=== PATIENT | male | born 1995 | race Caucasian/White ===

== ENCOUNTER 2018-11-29 19:56 | Emergency (ER) | payer OTHER, SELFPAY ==
[2018-11-29 19:59] VITALS: BP 124/65; PULSE 60; RESP 12; TEMP 36.8; O2SAT 99
--- NOTE | 2018-11-29 20:26 | ED.EYEPROB ---
HPI - Eye Problem General Chief complaint: Eye Problems Stated complaint: RT EYE IS RED, PAINFUL Time Seen by Provider: 11/29/18 20:26 Source: patient Mode of arrival: ambulatory Limitations: no limitations History of Present Illness HPI Narrative: 23-year-old male comes in with complaint of right eye redness. Patient states that he has had symptoms. He 1st noticed it after he went to the gym and lifted some weights. It is only the right eye. He states he has had tearing but no obvious crusting or purulent discharge. Patient states might seem a little irritated but isn't painful. Patient states that he has not had similar symptoms in the past, he denies any contacts or wearing glasses. Patient is not appreciate any swelling of his eyelids or the face. Patient any decrease in his vision. He denies any pain within the eye itself. Patient denies any other past medical history is, no prior surgeries. No allergies to medications. He is not aware of any foreign bodies. He has not been involved in any activity such as welding, working with, or other similar activities that could cause his symptoms. Review of Systems Review of Systems ROS Unobtainable: All systems reviewed & are unremarkable except as noted in HPI and below Constitutional Denies chills and Denies fever(s) Eyes Denies blurry vision, Denies change in vision, Denies diplopia, Denies eye discharge, Reports irritation, Denies loss of vision, Denies other visual disturbances, Denies eye pain, Denies requires corrective lenses, Denies seeing flashes, Denies photophobia and Denies spots in vision ENT Ears, Nose, Mouth, and Throat: Reports as per HPI Gastrointestinal Gastrointestinal: Denies nausea and Denies vomiting Neurologic Denies loss of vision [facility] Social History Smoking Status: Never smoker Social History Smoking Status: Never smoker Exam Narrative Exam Narrative: GEN: well nourished, well appearing male, alert and oriented x 3, patient appears to be in no acute distress. HEENT: Atraumatic, pupils are equal round reactive to light, extraocular movements are intact, nares are clear, TMs are clear with no fluid, there is no conjunctival pallor. Throat is clear without any exudates, erythema, tonsillar enlargement or uvular deviation Visual acuity: right [20/20], left [20/20] without correction. General: no globe trauma Eyelids: normal inspection, eyelids everted for exam on right, no foreign body noted Conjunctiva/Sclera: normal inspection on left, on right sclera is injected. Corneas: normal inspection on left, examined with fluroscein on right, . On the right patient has a linear abrasion with uptake the upper eye about a 0.5 cm above the iris that is horizontal. EOM: intact, no palsy/entrapment Pupils: PERRL, normal accomadation, pupil normal Anterior Chambers: normal inspection, no hypema Posterior: normal fundoscopic bilaterally HEART: Regular rate and rhythm without murmur, clicks, rubs. LUNGS:Lungs clear to auscultation, no wheezes, rales, crackles, chest moves symmetrically ABD:bowel sounds normal, soft, non-tender, no guarding, rebound, rigidity, no masses noted, no hepatosplenomegaly MSCL: Non-tender, no muscle atrophy, muscles strength 5/5 upper and lower extremities, full range of motion, normal gait NEURO:CN 2-12 intact, sensation normal Initial Vital Signs Initial Vital Signs: Vital Signs Temperature 98.3 F 11/29/18 19:59 Pulse Rate 60 11/29/18 19:59 Respiratory Rate 12 11/29/18 19:59 Blood Pressure 124/65 11/29/18 19:59 Pulse Oximetry 99 11/29/18 19:59 Course Orders Ordered: Discontinued Medications Ofloxacin (Ocuflox) 1 bottle MISC SEEINSTR ONE Stop: 11/29/18 20:48 Vital Signs - 8 hr 11/29/18 19:59 Temperature 98.3 F Pulse Rate 60 Respiratory Rate 12 Blood Pressure 124/65 Pulse Oximetry 99 MDM - Eye Problem MDM Narrative Medical decision making narrative: Patient has abrasion although no clear cause. Patient was put on ofloxacin ophthalmic drops given a prepack. And referral to ophtho for recheck tomorrow. Discussed signs symptoms read returned the patient. He is comfortable with the plan. Discharge Plan Departure Patient Disposition: Home Clinical Impression: Corneal abrasion Instructions: DI for Corneal Abrasion Activity Restrictions/Additional Instructions: Called from morning for follow-up with Ophthalmology in the next 24 hours. Call the referral number below. Use antibiotic eye drops to the affected eye 4 times daily. You may take Tylenol and/or ibuprofen as needed for pain. You may use cool compresses as needed to the affected eye. Return to the emergency department for sudden severe eye pain, rapidly worsening symptoms, increasing swelling of the eye or face, pain in the eye itself, vision loss or decreased vision or other new or concerning symptoms. Referrals: Nicolas Sweet MD [Physician] -
[2018-11-29] MEDS: OFLOXACIN 0.3% OPHTH PREPACK 1 BOTTLE MISC (20:55)
== END 2018-11-29 21:15 | disposition home or self-care (01) ==
PROVIDERS: Emergency Provider Emergency Medicine
DX: S05.01XA Injury of conjunctiva and corneal abrasion without foreign body, right eye, initial encounter (principal)
CPT/HCPCS: 99282; 99283

== ENCOUNTER → 2019-02-23 09:11 | Outpatient (CLI) | payer OTHER, SELFPAY ==
--- NOTE | 2019-02-23 | DI.MRI.S_ITS ---
PROCEDURE: MR SHOULDER LT W CON INDICATIONS: LABRAL TEAR OF LEFT SHOULDER TECHNIQUE: After the administration of 12 mL of dilute intra-articular Gadolinium contrast, oblique coronal T1 and T2 spin echo with fat saturation, oblique sagittal T1 spin echo with and without fat saturation, oblique sagittal T2 fast spin echo with fat saturation, axial T1 spin echo with fat saturation through the shoulder. COMPARISON: None. FINDINGS: Image quality: Excellent. Rotator cuff: The supraspinatus, infraspinatus, and subscapularis , teres minor tendons appear intact throughout. No rotator cuff muscle atrophy on sagittal images. Bones and bursae: Hill-Sachs fracture deformity is seen with associated marrow edema. No definite bony Bankart lesion identified. Mild AC joint degeneration. Capsule and soft tissues: Chondrolabral separation involving the anterior-inferior labrum image 16 series 6. Fraying of the superior labrum, and a possible superior labral tear seen on image 15 series 8, image 15 series 7 Elsewhere, the labrum appears intact. Long head of the biceps tendon intact. The rotator interval appears normal, without fibrosis. Coracohumeral ligament not well visualized. IMPRESSION: Hill-Sachs fracture deformity with acute or subacute marrow edema. Chondrolabral separation at the anteroinferior labrum. Differential includes glenolabral articular disruption (GLAD) lesion. Additional possible subtle superior labral tear as detailed above. No rotator cuff tear. Dictated by: Manny Hearn M.D. on 02/23/2019 at 11:36 Approved by: Manny Hearn M.D. on 02/23/2019 at 11:47
--- NOTE | 2019-02-23 | DI.RAD.S_ITS ---
PROCEDURE: FL SHOULDER INJECTION MR/CT LT INDICATIONS: LABRAL TEAR OF LEFT SHOULDER TECHNIQUE: The indications, alternatives, benefits, risks, and complications of the procedure were explained to the patient. Written informed consent was obtained and placed in the chart. The left shoulder was examined fluoroscopically and a site for needle placement chosen for entry into the glenohumeral joint from an anterior approach. The skin was prepped and draped in a sterile fashion, and 1% lidocaine infiltrated from skin down to joint capsule. A spinal needle was inserted into the left glenohumeral joint, and a small amount of iodinated contrast media injected to confirm intra-articular placement of the needle tip. This was followed by approximately 15 mL dilute solution of a gadolinium containing MR contrast agent. The needle was removed and a dressing was applied. The patient was given postprocedural instructions and sent to the MR suite for MR imaging. FINDINGS: A single fluoroscopic spot image demonstrates intra-articular location of injected iodinated contrast. Patient reports no postprocedural complaints and specifically denies any pain, numbness, tingling, or left upper extremity symptoms. IMPRESSION: Successful fluoroscopically guided administration of dilute Gadolinium solution into the left shoulder joint for MR arthrogram. Dictated by: Peter Adamson M.D. on 02/23/2019 at 10:19 Approved by: Peter Adamson M.D. on 02/23/2019 at 10:23
== END ==
DX: S43.492A Other sprain of left shoulder joint, initial encounter (principal); S42.292A Other displaced fracture of upper end of left humerus, initial encounter for closed fracture; M19.012 Primary osteoarthritis, left shoulder
CPT/HCPCS: 23350; 73222; 77002